=== PATIENT | male | born 1990 | race Two or more races ===

== ENCOUNTER 2024-07-27 03:19 | Emergency (ER) | payer BC, MEDICAID, SELFPAY ==
[2024-07-27 03:19] VITALS: BMI 25.8
[2024-07-27 03:27] VITALS: BP 131/87; PULSE 66; RESP 20; TEMP 36.4; O2SAT 100
--- NOTE | 2024-07-27 03:43 | XR_ITS ---
Examination: CT abdomen and pelvis without contrast. Coronal 3-D reconstructions. Sagittal 2-D reconstructions. Date and time of exam:July 27, 2024 0347 hrs. Indications: Onset right flank pain beginning one hour ago with vomiting episodes CTDI: vol (mGy): 6.50 DLP: (mGycm): 356 Technique: Axial images of the abdomen have been obtained, 3 mm slice thickness Intravenous contrast material has not been administered. Low dose protocols were performed. One or more of the following dose reduction techniques were used; automated exposure control, adjustment of the mA and/or KV according to patient size, use of iterative reconstruction technique. Findings: Suspicious for 10 mm pulmonary nodule right middle lobe, axial image 1 No focal liver or splenic lesion No gallstones No pancreatic or adrenal mass Tiny 1 to 2 mm bilateral renal calculi Mild right hydronephrosis secondary to 4 mm proximal right ureteral calculus Aorta normal size No bowel obstruction Normal appendix No diverticulitis Normal seminal vesicles Normal size prostate No bladder mass or bladder calculi Adequate bone density Lumbar levoscoliosis 12 degrees Impression: Mild right hydronephrosis secondary to 4 mm proximal right ureteral calculus
--- NOTE | 2024-07-27 03:44 | EDNOTE_ITS ---
ED Abdominal Pain RME/HPI General Chief Complaint: Back Pain/Injury Stated complaint: RT FLANK PAIN Time seen by provider: 07/27/24 03:31 Arrival date/time: 07/27/24 03:19 Source: patient, RN notes reviewed and old records reviewed Mode of arrival: ambulatory Limitations: no limitations RME / HPI RME / HPI narrative: 34yom presents to ED for sudden onset of right flank pain that initiated 30 minutes prior to ED arrival. Denies history of kidney stones. Patient reports nausea and x 1 episode of vomiting. No fever, abdominal pain, diarrhea or urinary symptoms reported. 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 Related Data Previous Rx's ?Medication ?Instructions ?Recorded acetaminophen 500 mg tablet 500 mg PO Q6H PRN pain #60 tabs 07/27/24 (Tylenol Extra Strength) ibuprofen 600 mg tablet 600 mg PO Q6H PRN pain #30 tabs 07/27/24 ondansetron 4 mg disintegrating 4 mg PO Q6H PRN nausea and 07/27/24 tablet vomiting #10 tabs tamsulosin 0.4 mg capsule (Flomax) 0.4 mg PO QDAY #5 caps 07/27/24 Allergies Allergy/AdvReac Type Severity Reaction Status Date / Time No Known Allergies Allergy Verified 07/27/24 03:20 Review of Systems Review of Systems Systems Reviewed: All systems reviewed, normal except as documented Constitutional Constitutional: Denies chills and Denies fever(s) Gastrointestinal Gastrointestinal: Denies abdominal pain, Reports nausea and Reports vomiting Genitourinary Genitourinary: Denies dysuria, Reports flank pain and Denies hematuria Past Medical History Surgical History OTHER SURGICAL HX: Denies past surgical history Social History SMOKING STATUS: Never smoker SUBSTANCE USE: does not use ALCOHOL: Never Past Medical History Comments PMH COMMENT: Denies past medical history ED Exam General Limitations: Present no limitations General appearance: Present alert, in no apparent distress and other (Appears uncomfortable 2/2 pain) Head Head exam: Present atraumatic and normocephalic Eye Eye exam: Present normal appearance, PERRL and EOMI ENT ENT exam: Present normal exam and mucous membranes moist Neck Neck exam: Present normal inspection and full ROM Chest Chest inspection: Present normal inspection and symmetric chest wall rise Respiratory Respiratory exam: Present normal lung sounds bilaterally; Absent respiratory distress Cardiovascular Cardiovascular exam: Present regular rate and normal rhythm Abdominal Exam Abdominal exam: Present soft; Absent distention, tenderness, guarding or rebound Extremities Exam Extremities exam: Present normal inspection and full ROM Back Exam Back exam: Present CVA tenderness (R); Absent CVA tenderness (L) Neurological Exam Neurological exam: Present alert and oriented X3 Psychiatric Psychiatric exam: Present normal affect and normal mood Skin Skin exam: Present warm, dry, intact and normal color Course Quality Measures none Orders Category Date Time Status CT abdomen pelvis wo con Stat Exams 07/27/24 03:43 Taken CBC Stat Lab 07/27/24 04:16 Completed CMP [Comprehensive Metabolic Panel] Stat Lab 07/27/24 04:16 Completed Lipase Stat Lab 07/27/24 04:16 Completed UA [Urinalysis] Stat Lab 07/27/24 05:13 Completed HYDROcodone*/APAP 7.5/325 [[place] 7.5/325] Med 07/27/24 03:43 Discontinued 1 tab PO X1 ONE Ketorolac Inj [Toradol Inj] Med 07/27/24 03:43 Discontinued 30 mg IM X1 ONE Ondansetron Odt [Zofran Odt] Med 07/27/24 03:43 Discontinued 4 mg PO X1 ONE Vital Signs Vital signs: Vital Signs Temperature 97.5 F 07/27/24 03:27 Pulse Rate 66 07/27/24 03:27 Respiratory Rate 20 07/27/24 03:27 Blood Pressure 131/87 H 07/27/24 03:27 Pulse Oximetry (%) 100 07/27/24 03:27 Oxygen Delivery Method Room Air 07/27/24 03:27 Abdominal Pain MDM MDM Narrative MDM Narrative:: 34yom presents to ED for sudden onset of right flank pain that initiated 30 minutes prior to ED arrival. Denies history of kidney stones. Patient reports nausea and x 1 episode of vomiting. No fever, abdominal pain, diarrhea or urinary symptoms reported. 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 Patient reassessed. Symptoms significantly improved after medications administered. Patient resting comfortably in bed. Encouraged adequate fluids, symptomatic treatment, pain management prn. Stable for discharge, RTED precautions given. Patient data External records reviewed:: [facility] previous records (PT treatment 03/03/2024 for left knee pain) Clinical information provided by:: patient Social determinants that could affect healthcare access:: none Patient has the following chronic illnesses:: None How is presenting disease/condition affected by chronic disease/condition?: no chronic disease Evaluation data The following diagnostics were reviewed and interpreted by me:: lab results and radiology exam(s) Lab and/or radiology exams considered but not ordered:: None Interpretation Summary: WBC 11 Cr 1.1 UA +blood CT abdomen/pelvis: Impression: A 4 mm obstructing calculus in the right proximal ureter, causing mild hydronephrosis. Nonobstructing bilateral renal calculi. Report Electronically Signed By: Abran Adams 07/27/2024 5:04:14 AM [EST] Medications / Prescriptions Medications or Prescriptions considered but not ordered:: No antibiotics recommended at this time Medication administrations:: Medication Administration History Discontinued Medications Hydrocodone Bitart/Acetaminophen (Hydrocodone/[place] 7.5/325 Tablet) 1 tab PO X1 ONE Stop: 07/27/24 03:44 Last Admin: 07/27/24 04:07 Dose: 1 tab Documented By: HERIBERTO Ketorolac Tromethamine (Ketorolac Inj 60 Mg/2 Ml Vial) 30 mg IM X1 ONE Stop: 07/27/24 03:44 Last Admin: 07/27/24 04:07 Dose: 30 mg Documented By: HERIBERTO Ondansetron HCl (Ondansetron Odt 4 Mg Tabrap) 4 mg PO X1 ONE; Protocol Stop: 07/27/24 03:44 Last Admin: 07/27/24 04:06 Dose: 4 mg Documented By: HERIBERTO Above medications administered in ED Consultations Consultation(s) initiated? (list below): No Diagnosis Differential diagnosis abdominal pain: abdominal pain, acute appendicitis, calculus of kidney and other (Lumbar strain, sciatica) Most likely diagnosis given after review of the tests above:: Ureteral stone, renal colic Admission Indicated Admission indicated?: not indicated Admission Request Was there a request for admission?: No Disposition Plan Disposition Plan: Discharge Discharge Attestation Discharge Attestation: The patient and all family members were given an opportunity to ask questions and understood the discharge instructions. Discharge instructions specifically effects, indications for sooner follow up or return to the emergency department, and the expected course of current diagnosis. Patient condition: Stable Discharge Plan Plan Patient Disposition: HOME (Self Care) Patient condition on transfer: Stable Prescriptions/Referrals Prescriptions/Med Rec: New tamsulosin [Flomax] 0.4 mg capsule 0.4 mg PO QDAY Qty: 5 0RF ondansetron 4 mg tablet,disintegrating 4 mg PO Q6H PRN (Reason: nausea and vomiting) Qty: 10 0RF ibuprofen 600 mg tablet 600 mg PO Q6H PRN (Reason: pain) Qty: 30 0RF acetaminophen [Tylenol Extra Strength] 500 mg tablet 500 mg PO Q6H PRN (Reason: pain) Qty: 60 0RF Referrals: Temporary Provider,ED [Physician] - In 1 week Problem List Clinical Impression: Right ureteral stone, Renal colic on right side Patient/Caregiver Discharge Instructions Education Materials: ED Kidney Stone w/ Colic Print Language: Estonian Stand Alone Forms: [employer]illi[employer] Award Info., Work/School Release, Patient Portal Info Letter PA/TOPOGRAPHIC COMPUTATOR Supervising Physician PA/TOPOGRAPHIC COMPUTATOR Supervising Physician: George
[2024-07-27] MEDS: ONDANSETRON ODT 4 MG TABRAP PO (04:06)
[2024-07-27] MEDS: KETOROLAC INJ 60 MG/2 ML VIAL 30 MG IM (04:07)
[2024-07-27] MEDS: HYDROcodone/APAP 7.5/325 TABLET 1 TAB PO (04:07)
[2024-07-27 04:34] LABS: Basophils % (Auto) 0 % (0-2.5); Eosinophils # (Auto) 0.1 Thou/mm3 (0.0-0.5); Eosinophils % (Auto) 1 % (0-10); Hemoglobin 13.3 g/dL (13.5-16.0); Immature Granulocytes % (Auto) 0 % (0-0); Immature Granulocytes Auto 0.04 Thou/mm3 (0.00-0.00); Lymphocytes # (Auto) 4.2 Thou/mm3 (1.0-4.8); Lymphocytes % (Auto) 38 % (10-50); Mean Corpuscular HGB Conc 34.1 g/dl (31.0-37.0); Mean Corpuscular Hemoglobin 27.7 pg (25.0-35.0); Mean Corpuscular Volume 81 fL (80-100); Monocytes # (Auto) 0.6 Thou/mm3 (0.0-0.8); Monocytes % (Auto) 6 % (0-12); Neutrophils # (Auto) 6.1 Thou/mm3 (1.8-7.7); Neutrophils % (Auto) 55 % (37-80); Nucleated Red Blood Cell % 0 /100 WBC (0); Platelet Count 218 Thou/mm3 (140-440); RDW Standard Deviation 38.7 fL (35.1-43.9)
[2024-07-27 04:53] LABS: Alanine Aminotransferase 23 U/L (10-49); Albumin, Serum 4.6 gm/dL (3.5-5.0); Albumin/Globulin Ratio 1.6 (1.2-2.2); Alkaline Phosphatase 78 U/L (46-116); Anion Gap 9 (7-16); Aspartate Amino Transferase 24 U/L (0-34); BUN/Creatinine Ratio 24 Ratio (12-20); Bilirubin,Total 0.7 mg/dL (0.3-1.2); Blood Urea Nitrogen 26 mg/dL (9-23); Calcium 9.6 mg/dL (8.3-10.6); Calcium (Corrected) 9.6 mg/dL (8.5-10.1); Carbon Dioxide 25.8 mMol/L (20.0-31.0); Chloride 109 mMol/L (98-107); Creatinine (Component) 1.1 mg/dL (0.6-1.3); Estimated Creatinine Clearance 90.7 mL/min (>60); Globulin 2.9 gm/dL (2.3-3.5); Glucose 128 mg/dL (74-106); Lipase 40 U/L (12-53); Osmolality,Calculated 293 (275-295); Potassium 3.8 mMol/L (3.4-5.1); Sodium 144 mMol/L (136-145); Total Protein 7.5 gm/dL (5.7-8.2); eGFR > 60 See Note
--- NOTE | 2024-07-27 05:05 | PRELIM_ITS ---
CT scan of the abdomen and pelvis without intravenous contrast (axial sections with sagittal and lizette nal reformats) July 27, 2024 0347 hours Clinical History: right flank pain No prior study is avail able for comparison. Findings:The lung bases are clear.There is a 4 mm obstructing calculus in the ri ght proximal ureter (coronal image 68/147 ) causing mild hydronephrosis.There are nonobstructing calc carmel in bilateral kidneys, the largest measuring 2 mm on the right. There is a 1.5 cm cyst in the mid pole of the left kidney.The liver, gallbladder, pancreas, spleen and adrenals are unremarkable on thi s noncontrast study.No evidence of bowel obstruction. The appendix is within normal limits. There are subcentimeter mesenteric and retroperitoneal lymph nodes. The urinary bladder is incompletely dist ended at the time of the examination. The prostate is mildly enlarged with prostatic calcifications. There is no free fluid or free air.There is mild levoscoliosis of the lumbar spine. The osseous struc tures are otherwise intact.Impression:A 4 mm obstructing calculus in the right proximal ureter, causi ng mild hydronephrosis.Nonobstructing bilateral renal calculi. Report Electronically Signed By: Abran Adams 07/27/2024 5:04:14 AM [EST]
[2024-07-27 05:22] LABS: Bilirubin,Urine Negative (Negative); Blood,Urine 3+ (Negative); Clarity,Urine Turbid (Clear/Hazy); Collection Type, Urine Clean Catch; Color,Urine Yellow (Lt Yel-Yel); Glucose, Urine Negative (Negative); Ketones,Urine Negative (Negative); Leukocyte Esterase,Urine Negative (Negative); Nitrite,Urine Negative (Negative); PH,Urine 5.5 (5.0-7.0); Protein,Urine 1+ (Neg - Trace); RBC,Urine 97 /hpf (0-3); Specific Gravity,Urine 1.035 (1.001-1.035); Squamous Epithelial Cell,Urine < 1 /hpf (0-5); Urobilinogen,Urine Negative mg/dL (0.0-1.0); WBC,Urine 6 /hpf (0-5)
[2024-07-27 05:34] VITALS: BP 121/86; PULSE 58; RESP 18; TEMP 36.7; O2SAT 99
== END 2024-07-27 05:35 | disposition home or self-care (01) ==
PROVIDERS: Physician Assistant; Emergency Provider Emergency Medicine; Referring Provider Emergency Medicine
DX: N13.2 Hydronephrosis with renal and ureteral calculous obstruction (principal)
CPT/HCPCS: 36415; 74176; 80053; 81001; 83690; 85025; 96372; 99284; J1885; Q0162; A9270